=== PATIENT | female | born 1985 | race Caucasian/White ===

== ENCOUNTER 2017-07-24 09:58 | Inpatient (IN) | payer OTHER ==
[~2017-07-24] VITALS: Ht 170.2 cm; Wt 82.3 kg
[~2017-07-24 09:58] MED LIST: IBUP-1222 PO; OXYC-302 PO; SENN-1 PO
[2017-07-24] MEDS ORDERED: OXYTOCIN 30U/ 0.9% NaCL 500ML 500 ML IV ONE (11:58)
[2017-07-24] MEDS ORDERED: OXYTOCIN 30U/ 0.9% NaCL 500ML 500 ML IV PRN (11:58)
[2017-07-24] MEDS ORDERED: ONDANSETRON 2MG/ML, 2ML IVPush PRN ×2 (12:00→14:30)
[2017-07-24] MEDS ORDERED: FENTANYL PF 100 MCG/2ML IVPush PRN (12:00)
[2017-07-24] MEDS ORDERED: CALCIUM CARBONATE 500 MG TAB.CHEW PO PRN (12:00)
[2017-07-24] MEDS ORDERED: FENTANYL PF 100 MCG/2ML IV PRN ×2 (12:00→14:30)
[2017-07-24] MEDS ORDERED: OXYTOCIN 30U/ 0.9% NaCL 500ML 500 ML ONE ×2 (12:18→20:45)
[2017-07-24] MEDS ORDERED: NEWBORN KIT ONE (12:22)
[2017-07-24 12:33] LABS: BASOPHILS # (AUTO) 0.04 x10^3/uL (0-0.1); BASOPHILS % (AUTO) 0 % (0-1); EOSINOPHILS # (AUTO) 0.04 x10^3/uL (0-0.4); EOSINOPHILS % (AUTO) 0 % (1-7); LYMPHOCYTES # (AUTO) 2.33 x10^3/uL (1-3.4); LYMPHOCYTES % (AUTO) 25 % (22-44); MD NO; MEAN CORPUSCULAR HEMOGLOBIN 30.2 pg (27.0-34.8); MEAN CORPUSCULAR HGB CONC 33.5 g/dL (32.4-35.8); MEAN PLATELET VOLUME 7.8 fL (7.4-10.4); MONOCYTES # (AUTO) 0.51 x10^3/uL (0.2-0.8); MONOCYTES % (AUTO) 6 % (2-9); NEUTROPHILS # (AUTO) 6.32 x10^3/uL (1.8-6.8); NEUTROPHILS % (AUTO) 69 % (42-75); PLATELET COUNT 176 x10^3/uL (130-400); RED BLOOD COUNT 3.82 x10^6/uL (3.82-5.3); RED CELL DISTRIBUTION WIDTH 13.1 % (9.6-15.2)
[2017-07-24] MEDS: LACTATED RINGERS 1,000 ML IV SCH ×4 (13:24→20:59)
[2017-07-24] MEDS ORDERED: HYDROmorphone 1 MG/ML, 1ML IV PRN (14:30)
[2017-07-24] MEDS ORDERED: MEPERIDINE/PF 25MG/0.5ML IVPush PRN (14:30)
[2017-07-24] MEDS ORDERED: BUPIVACAINE 0.25% ONE ×2 (16:30→17:16)
[2017-07-24] MEDS ORDERED: FENTANYL/BUPIV./NS/PF 250 ML EPIDCONT ONE (16:30)
[2017-07-24] MEDS ORDERED: FENTANYL/BUPIV./NS/PF 250 ML EPIDCONT SCH (17:04)
[2017-07-24] MEDS ORDERED: LACTATED RINGERS 1,000 ML IVBOLUS PRN (17:30)
[2017-07-24] MEDS: D5%-LACTATED RINGERS 1,000 ML IV SCH (17:45)
[2017-07-24] MEDS ORDERED: GLYCERIN ADULT SUPP PR PRN (18:00)
[2017-07-24] MEDS ORDERED: ACETAMINOPHEN 325 MG TABLET PO PRN (18:00)
[2017-07-24] MEDS ORDERED: MISOPROSTOL 200 MCG TABLET PR PRN (18:00)
[2017-07-24] MEDS ORDERED: CARBOPROST TROMETHAMINE 250 MCG/ML, 1ML IM PRN (18:00)
[2017-07-24] MEDS ORDERED: OXYcodone/APAP 5/325MG TABLET PO PRN (18:00)
[2017-07-24] MEDS ORDERED: METHYLERGONOVINE 0.2 MG/ML IM PRN (18:00)
[2017-07-24] MEDS ORDERED: ONDANSETRON 2MG/ML, 2ML IV PRN (18:00)
[2017-07-24] MEDS ORDERED: METOCLOPRAMIDE 5 MG/ML, 2ML IV PRN (18:00)
[2017-07-24] MEDS ORDERED: BISACODYL 10 MG SUPP PR PRN (18:00)
[2017-07-24] MEDS ORDERED: IBUPROFEN 600 MG TABLET ONE (18:56)
[2017-07-24] MEDS: IBUPROFEN 600 MG TABLET PO PRN (18:59)
[2017-07-24] MEDS: OXYTOCIN 30U/ 0.9% NaCL 500ML 500 ML IV SCH (20:59)
[2017-07-24] MEDS ORDERED: OXYcodone/APAP 5/325MG TABLET ONE (21:29)
[2017-07-24] MEDS: OXYcodone/APAP 5/325MG TABLET PO PRN (21:39)
[2017-07-24 22:50] VITALS: BP 109/69
[2017-07-25] MEDS: D5%-LACTATED RINGERS 1,000 ML IV SCH ×3 (01:42→17:42)
[2017-07-25] MEDS: IBUPROFEN 600 MG TABLET PO PRN ×4 (02:22→23:51)
[2017-07-25] MEDS: OXYcodone/APAP 5/325MG TABLET PO PRN ×5 (02:22→23:51)
[2017-07-25 02:36] VITALS: BP 121/74
[2017-07-25] MEDS: OXYTOCIN 30U/ 0.9% NaCL 500ML 500 ML IV SCH ×3 (03:56→23:56)
[2017-07-25] MEDS: LACTATED RINGERS 1,000 ML IV SCH ×3 (03:58→19:58)
[2017-07-25 04:47] LABS: BASOPHILS # (AUTO) 0.02 x10^3/uL (0-0.1); BASOPHILS % (AUTO) 0 % (0-1); EOSINOPHILS # (AUTO) 0.08 x10^3/uL (0-0.4); EOSINOPHILS % (AUTO) 1 % (1-7); LYMPHOCYTES # (AUTO) 2.22 x10^3/uL (1-3.4); LYMPHOCYTES % (AUTO) 24 % (22-44); MD NO; MEAN CORPUSCULAR HEMOGLOBIN 29.8 pg (27.0-34.8); MEAN CORPUSCULAR HGB CONC 33.5 g/dL (32.4-35.8); MEAN CORPUSCULAR VOLUME 88.9 fL (80-100); MEAN PLATELET VOLUME 8.1 fL (7.4-10.4); MONOCYTES # (AUTO) 0.41 x10^3/uL (0.2-0.8); MONOCYTES % (AUTO) 4 % (2-9); NEUTROPHILS # (AUTO) 6.69 x10^3/uL (1.8-6.8); NEUTROPHILS % (AUTO) 71 % (42-75); PLATELET COUNT 162 x10^3/uL (130-400); RED BLOOD COUNT 3.57 x10^6/uL (3.82-5.3); RED CELL DISTRIBUTION WIDTH 13.3 % (9.6-15.2)
[2017-07-25 06:00] VITALS: BP 120/75
[2017-07-25 09:12] VITALS: BP 123/80
[2017-07-25] MEDS: PRENATAL VIT/IRON/FA 1 EACH TABLET PO SCH (09:16)
[2017-07-25] MEDS: DOCUSATE 100 MG CAPSULE PO PRN ×2 (09:16→19:28)
[2017-07-25 12:45] VITALS: BP 132/90
[2017-07-25 17:38] VITALS: BP 116/72
[2017-07-25 19:30] VITALS: BP 128/77
[2017-07-26] MEDS: D5%-LACTATED RINGERS 1,000 ML IV SCH ×2 (01:42→09:42)
[2017-07-26] MEDS: LACTATED RINGERS 1,000 ML IV SCH (03:58)
[2017-07-26] MEDS: OXYcodone/APAP 5/325MG TABLET PO PRN (04:25)
[2017-07-26 08:00] VITALS: BP 131/78
[2017-07-26] MEDS: PRENATAL VIT/IRON/FA 1 EACH TABLET PO SCH (08:11)
[2017-07-26] MEDS: DOCUSATE 100 MG CAPSULE PO PRN (08:11)
[2017-07-26] MEDS: IBUPROFEN 600 MG TABLET PO PRN (08:13)
[2017-07-26] MEDS: OXYTOCIN 30U/ 0.9% NaCL 500ML 500 ML IV SCH (09:56)
[2017-07-26] MEDS ORDERED: DOCU-131 PO (10:30)
[2017-07-26] MEDS ORDERED: IBUP-1222 PO ×2 (10:30→10:31)
[2017-07-26] MEDS ORDERED: OXYC-302 PO ×2 (10:31→10:32)
== END 2017-07-26 11:45 | disposition home or self-care (01) | DRG 775 ==
LOC: LDOP 09:58 → LDIP 11:58 → 2NW 21:30
PROVIDERS: ADMIT Obstetrics & Gynecology; ATTEND Obstetrics & Gynecology
PROC: 10E0XZZ Delivery of Products of Conception, External Approach (ICD-10-PCS; principal; 2017-07-24)
PROC: 0HQ9XZZ Repair Perineum Skin, External Approach (ICD-10-PCS; 2017-07-24)
PROC: 3E0R3BZ Introduction of Anesthetic Agent into Spinal Canal, Percutaneous Approach (ICD-10-PCS; 2017-07-24)
PROC: 00HU33Z Insertion of Infusion Device into Spinal Canal, Percutaneous Approach (ICD-10-PCS; 2017-07-24)
DX: O70.0 First degree perineal laceration during delivery (principal); Z37.0 Single live birth; Z3A.36 36 weeks gestation of pregnancy
CPT/HCPCS: 36415; 84112; 85025; 86850; 86900; J3490; J2590; J3010; J7120; J7121